=== PATIENT | male | born 1950 | race Caucasian/White ===

== ENCOUNTER 2023-03-22 09:45 | Outpatient (RCR) | payer MEDICARE, BC, SELFPAY | END 2023-06-28 14:47 | disposition home or self-care (01) | PROVIDERS: Visit Provider Internal Medicine | DX: M25.511 Pain in right shoulder (principal); Z51.89 Encounter for other specified aftercare | CPT/HCPCS: 97110; 97140; 97162 ==

== ENCOUNTER 2023-04-19 21:21 | Emergency (ER) | payer MEDICARE, BC, SELFPAY ==
[2023-04-19 21:26] VITALS: BP 162/73; PULSE 96; RESP 16; TEMP 35.9; O2SAT 96
--- NOTE | 2023-04-19 21:48 | CRLHL7_ITS ---
For Patients: As a result of the Cures Act, medical imaging exams and procedure reports are released immediately into your electronic medical record. You may view this report before your referring provider. If you have questions, please contact your health care provider. INDICATION: Trauma. TECHNIQUE: Right great toe 3 views. COMPARISON: None. FINDINGS: No acute fracture or dislocation. Mild to moderate 1st MTP joint degenerative changes. Mild soft tissue swelling. IMPRESSION: No acute osseous abnormality. Dictated by Romeo Pope MD @ 04/19/2023 10:21:07 PM (Electronically Signed)
--- NOTE | 2023-04-19 21:51 | ED.LOWEXIN ---
HPI - Extremity Injury (Lower) General Time Seen by Provider: 21:51 Date Seen: 04/19/23 Chief Complaint: Unspecified Complaint, Adult Stated Complaint: Diabetic wants someone to look at his R foot. 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 Patient noted yesterday he hit his toe on a curb in does remember that. He states that he has been up for most of the day smoking some salmon and has had no issues or pain. Tonight he noticed increasing redness and discoloration of the toe. He notes that he was hospitalized after significant cellulitis last year. He states that he would rather not that happen again and is willing to start antibiotics tonight if needed. He denies fever, chills, vomiting, muscle aches. Related Data Allergies Allergy/AdvReac Type Severity Reaction Status Date / Time No Known Drug Allergies Allergy Verified 04/19/23 21:26 Review of Systems Status of ROS: Reports: 6 or more systems reviewed and unremarkable except as noted in History and below [facility] Social History Non-prescribed substance use: denies use Exam Narrative: Exam Narrative: Alert and oriented. No respiratory distress. Examination of the right great toe shows redness and bruising from the tip to the MTP. Palpation shows no significant discomfort. No lacerations or compromise of the skin noted. It is not excessively warmtouch and there is no drainage. Const: Vital Signs, click to edit/add: Vital Signs - 24 hr 04/19/23 21:26 Temperature 96.6 F L Pulse Rate [Right Pulse Oximeter] 96 Respiratory Rate 16 Blood Pressure [Le ft Upper Arm] 162/73 H Pulse Oximetry 96 Oxygen Delivery Me thod Room Air Documenting provider has reviewed patient's vital signs: yes Course Course ED Course: At this time patient appears to be have traumatic injury to the right great toe. I do not note any signs of cellulitis. I do recommend x-ray at this time and patient is in agreement. Vital Signs Vital signs: Initial Vital Signs Temperature 96.6 F L 04/19/23 21:26 Temperature Source Temporal Artery Scan 04/19/23 21:26 Pulse Rate 96 04/19/23 21:26 Pulse Rhythm Regular 04/19/23 21:26 Respiratory Rate 16 04/19/23 21:26 Blood Pressure 162/73 H 04/19/23 21:26 Blood Pressure Mean 102 04/19/23 21:26 Blood Pressure Position Sitting 04/19/23 21:26 Pulse Oximetry 96 04/19/23 21:26 Oxygen Delivery Method Room Air 04/19/23 21:26 Vital Signs Temperature 96.6 F L 04/19/23 21:26 Pulse Rate 96 04/19/23 21:26 Respiratory Rate 16 04/19/23 21:26 Blood Pressure 162/73 H 04/19/23 21:26 Pulse Oximetry 96 04/19/23 21:26 Oxygen Delivery Method Room Air 04/19/23 21:26 Temperature 96.6 F L 04/19/23 21:26 Pulse Rate 96 04/19/23 21:26 Respiratory Rate 16 04/19/23 21:26 Blood Pressure 162/73 H 04/19/23 21:26 Pulse Oximetry 96 04/19/23 21:26 Oxygen Delivery Method Room Air 04/19/23 21:26 MDM - Extremity Injury (Lower) MDM Narrative Medical decision making narrative: 1. Traumatic ecchymosis of the right great toe-no evidence of fracture noted on x-ray or radiological over-read. 2. History of cellulitis-no evidence of cellulitis tonight. Nail itself does not appear to be significantly traumatized. There is no warmth to the touch drainage or compromise of the skin at this time. 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 It does appear that he had a challenging to treat cellulitis 1 year ago. 3. Disposition-home at this time. Return for worsening symptoms and as needed. Medical Records Attestation: I reviewed the patient's medical records. Imaging Data Right great toe x-ray: Attestation: I have reviewed the pertinent imaging results. My impression: No obvious fracture Radiologist's impression: No obvious fracture Discharge Plan Discharge Clinical Impression: Traumatic ecchymosis of toe of right foot Qualifiers: Encounter type: initial encounter Qualified Code(s): S90.121A - Contusion of right lesser toe(s) without damage to nail, initial encounter Patient Disposition: Home, Self-Care Condition: Unchanged Additional Instructions: Continue to monitor. Seek medical attention for increasing swelling, fever, red streaks coming up onto foot and as needed. Follow Up/Referrals: Provider,Not a Local [Primary Care Provider] - Stand Alone Forms: [employer] Info Instructions
== END 2023-04-19 22:39 | disposition home or self-care (01) ==
PROVIDERS: Emergency Provider Family Medicine
DX: S90.111A Contusion of right great toe without damage to nail, initial encounter (principal); W22.8XXA Striking against or struck by other objects, initial encounter
CPT/HCPCS: 73660; 99283